=== PATIENT | female | born 1965 | race African-American/Black ===

== ENCOUNTER 2016-10-22 00:47 | Emergency (ER) | payer MEDICARE, MEDICAID ==
[~2016-10-22] VITALS: Ht 167.6 cm; Wt 113.6 kg
[~2016-10-22 00:47] MED LIST: CARI350 PO; CLON0.2T PO; DIAZ10 PO; HYDR-3112 PO; HYDR-3971 PO; HYDR25TA PO; LISI40TA4 PO; LOSA100T29 PO; MILN50TA PO; MORP20CA19 PO; TEMA15CA PO; ZOLP10TA6 PO
[2016-10-22 00:50] VITALS: BP 191/145
== END 2016-10-22 01:24 | disposition left against medical advice (07) ==
LOC: EMS 00:49
DX: R53.1 Weakness (principal); Z53.21 Procedure and treatment not carried out due to patient leaving prior to being seen by health care provider; R10.9 Unspecified abdominal pain